=== PATIENT | female | born 1965 | race Caucasian/White ===

== ENCOUNTER → 2024-02-20 10:25 | Outpatient (REF) | payer BC, SELFPAY | LOC: RCS 10:25 | PROVIDERS: ATTENDING PHYSICIAN Internal Medicine; FAMILY PHYSICIAN Family Medicine | DX: R06.02 Shortness of breath (principal); G70.00 Myasthenia gravis without (acute) exacerbation; R00.2 Palpitations | CPT/HCPCS: 93225; 93226 ==

== ENCOUNTER → 2024-02-27 10:12 | Outpatient (REF) | payer BC, SELFPAY | LOC: DHCBC HW 10:12 | PROVIDERS: ATTENDING PHYSICIAN Internal Medicine; FAMILY PHYSICIAN Family Medicine | DX: R06.02 Shortness of breath (principal); G70.00 Myasthenia gravis without (acute) exacerbation; R00.2 Palpitations | CPT/HCPCS: 93306 ==